=== PATIENT | female | born 1960 | race Caucasian/White ===

== ENCOUNTER 2023-12-07 20:56 | Emergency (ER) | payer SELFPAY ==
[2023-12-07] MEDS ORDERED: Ondansetron Hydrochloride 4 MG/2 ML VIAL IV ONE (21:35)
[2023-12-07] MEDS ORDERED: SODIUM CHLORIDE 0.9% 1,000 ML IV ONE (21:35)
[2023-12-07 21:55] LABS: HEMATOCRIT 38.7 % (37.0-47.0); MANUAL DIFF REFLEX YES; MEAN CELL VOLUME 86.6 fl (81.0-99.0); MEAN CORPUSCULAR HGB 27.5 pg (27.0-31.0); MEAN CORPUSCULAR HGB CONC 31.8 g/dl (33.0-37.0); MEAN PLATELET VOLUME 9.6 fl (9.6-12.3); PLATELET COUNT AUTOMATED 270 10*3/uL (130-400); RED BLOOD COUNT 4.47 10*6/uL (4.10-5.10); RED CELL DISTRI WIDTH 15.6 % (0-14.5); WHITE BLOOD COUNT 15.6 10*3/uL (4.8-10.8)
[2023-12-07 22:13] LABS: ALKALINE PHOSPHATASE 211 U/L (46-116); BUN 10 mg/dl (9-23); CHLORIDE 102 mmol/L (98-107); LIPASE 34 U/L (12-53); POTASSIUM 3.8 mmol/L (3.4-5.1); SGPT/ALT 157 U/L (5-49); TOTAL PROTEIN 7.6 gm/dL (6.0-8.0)
[2023-12-07 22:15] LABS: OVALOCYTES FEW; PLATELET SUFFICIENCY NORMAL (NORMAL); TOTAL CELLS COUNTED 100 #CELLS
[2023-12-07 22:16] LABS: POLYCHROMASIA SLIGHT
[2023-12-07 22:44] LABS: BILIRUBIN Negative (Negative); BLOOD 2+ (Negative); CLARITY Clear (Clear); COLOR Yellow (Yellow); GLUCOSE Negative (Negative); KETONE 1+ (Negative); LEUKO ESTERASE Trace (Negative); NITRITE Negative (Negative); PH 7.5 (4.5-8.0)
[2023-12-07] MEDS ORDERED: BUPROPION XL300 MG PO (22:55)
[2023-12-07] MEDS ORDERED: BUPROPION HYDR150 M3 PO (22:55)
[2023-12-07] MEDS ORDERED: LAMOTRIGINE150 MG PO (22:56)
[2023-12-07] MEDS ORDERED: LAMOTRIGINE100 MG PO (22:56)
[2023-12-07] MEDS ORDERED: SERTRALINE HYD100 MG PO (22:57)
[2023-12-07] MEDS ORDERED: HYDROXYZINE HCL25 MG PO (22:57)
[2023-12-07 23:16] LABS: RBC 21-30 rbc/hpf (0-2)
[2023-12-07] MEDS ORDERED: IOHEXOL 300 MG/ML 100 ML VIAL IV ONE (23:40)
[2023-12-08] MEDS ORDERED: IOHEXOL 300 MG/ML 100 ML VIAL ONE (00:11)
[2023-12-08] MEDS ORDERED: HYDROmorphONE Hydrochloride 1 MG/ML SYR IV ONE ×2 (00:50→03:50)
[2023-12-08] MEDS ORDERED: Piperacillin Sodium/Tazobact 50 ML IV ONE (02:50)
[2023-12-08] MEDS ORDERED: SODIUM CHLORIDE 0.9% 1,000 ML IV SCH (02:55)
[2023-12-08] MEDS ORDERED: ACETAMINOPHEN 650 MG SUPP R ONE (04:55)
== END 2023-12-08 05:50 | disposition short-term general hospital (02) ==
LOC: ED 20:56
PROVIDERS: Emergency Medicine
DX: J69.0 Pneumonitis due to inhalation of food and vomit (principal); A41.9 Sepsis, unspecified organism; K83.1 Obstruction of bile duct; R73.9 Hyperglycemia, unspecified; R09.02 Hypoxemia; D72.829 Elevated white blood cell count, unspecified; R74.01 Elevation of levels of liver transaminase levels; F31.9 Bipolar disorder, unspecified